=== PATIENT | male | born 1970 | race Caucasian/White ===

== ENCOUNTER 2017-12-19 05:54 | Emergency (ER) | payer OTHER ==
[2017-12-19] MEDS ORDERED: Sodium Chloride 0.9% 2.5 ML Syringe FLUSH PRN (06:07)
[2017-12-19] MEDS ORDERED: Sodium Chloride 0.9% 10 ML Syringe FLUSH PRN (06:07)
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
[2017-12-19] MEDS ORDERED: Ketorolac 30 MG/ML SDV IVPUSH ONE (06:26)
[2017-12-19 06:27] LABS: CHLORIDE,CL 104 mmol/L (98-107); SODIUM,NA 139 mmol/L (136-148)
[2017-12-19] MEDS ORDERED: Diphtheria,Pertussis(Acell),Tetanus Vaccine 0.5 ML Syringe IM ONE (06:27)
[2017-12-19] MEDS ORDERED: Bacitracin Oint 1 GM U/D Packet TOP ONE (06:41)
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
== END 2017-12-19 07:00 | disposition home or self-care (01) ==
LOC: MW.ED 05:54
DX: S09.90XA Unspecified injury of head, initial encounter (principal); S01.01XA Laceration without foreign body of scalp, initial encounter; S40.811A Abrasion of right upper arm, initial encounter; S30.0XXA Contusion of lower back and pelvis, initial encounter; S30.1XXA Contusion of abdominal wall, initial encounter; Z23 Encounter for immunization; V59.9XXA Occupant (driver) (passenger) of pick-up truck or van injured in unspecified traffic accident, initial encounter
CPT/HCPCS: 70450; 71045; 72125; 72170; 80053; 83690; 85025; 90471; 90715; 93005; 96374; 99285; G0480; J1885